=== PATIENT | female | born 1965 | race Caucasian/White ===

== ENCOUNTER → 2019-11-05 12:59 | Outpatient (CLI) | payer OTHER, SELFPAY ==
--- NOTE | 2019-11-05 | DI.MRI.S_ITS ---
PROCEDURE: MR HAND LT WO CON INDICATIONS: Ganglion cyst with neuropathic symptoms TECHNIQUE: Noncontrast coronal T1 spin echo and T2 fast spin echo with fat saturation, axial proton density fast spin echo and T2 fast spin echo with fat saturation, sagittal T1 spin echo and STIR through the hand and fingers. COMPARISON: None. FINDINGS: Image quality: Excellent. Bones: The bones are normally aligned, without marrow contusions or fractures. There is a small intraosseous cystic lesion within the proximal lunate measuring up to 0.4 cm likely representing a ganglion cyst. Interphalangeal joints: The accessory and proper collateral ligaments appear intact. The volar plate demonstrates normal morphology. The extensor central slips appear intact on sagittal images. Metacarpophalangeal joints: The accessory and proper collateral ligaments appear intact, as well as the volar plate and adjacent deep transverse metacarpal ligaments. The sagittal bands of the extensor hyde appear intact. Extensor apparatus: The central slips insert normally on the middle phalangeal base. The conjoint and terminal tendons insert normally on the distal phalangeal bases. More proximal portions of the extensor tendons also appear normal. Flexor apparatus: The flexor digitorum superficialis and profundus tendons appear intact. All annular and cruciform pulleys appear intact, without adjacent soft tissue edema. Soft tissues: Dorsal to the carpus, there is an ill-defined T2 hyperintense cystic lesion overlying the proximal aspect of the capitate. This measures approximately 1.8 cm in longitudinal dimension by 1.4 cm in transverse dimension by 0.4 cm in thickness. Findings likely represent a ganglion cyst. There is minimal mass effect on adjacent small vascular structures. Visualized muscles demonstrate normal bulk and internal signal. No intramuscular masses identified. Within the volar soft tissues of the hand and fingers, there are numerous small T2 hyperintense cystic foci on the order of approximately 0.2-0.3 cm. IMPRESSION: 1. Small dorsal ganglion cyst along the carpus at the level of the capitate. 2. Numerous small T2 hyperintense foci within the volar soft tissues of the hand and fingers suggestive of small soft tissue cyst measuring 2-3 mm. Findings are of indeterminate clinical significance and correlation is recommended with clinical exam and history. Dictated by: Higinio London M.D. on 11/05/2019 at 16:39 Approved by: Higinio London M.D. on 11/05/2019 at 16:48
== END ==
PROVIDERS: Family Provider Family Medicine; PCP Family Medicine; Referring Provider Family Medicine; Visit Provider Family Medicine
DX: M67.442 Ganglion, left hand (principal)
CPT/HCPCS: 73218

== ENCOUNTER 2022-11-26 20:44 | Emergency (ER) | payer OTHER, SELFPAY ==
[2022-11-26 21:03] VITALS: BP 169/109; PULSE 72; RESP 23; TEMP 36.6; O2SAT 98; BMI 23.6
[2022-11-26] MEDS: ONDANSETRON 4 MG ODT SL (21:10)
[2022-11-26 21:50] VITALS: PULSE 82; O2SAT 97
[2022-11-26 21:51] VITALS: BP 137/63; PULSE 83; O2SAT 98
--- NOTE | 2022-11-26 22:10 | ED.HA ---
HPI - Headache General Chief Complaint: Headache Stated Complaint: HEADACHE/VOMITING Time Seen by Provider: 11/26/22 21:54 Source: patient Mode of arrival: Ambulatory Limitations: no limitations History of Present Illness HPI Narrative: Patient is a 57-year-old female. She does have history of migraines. She states that earlier today she had a partial mastectomy secondary to history of ductal carcinoma in Situ that a prior surgery did not have clean margins. States that she was told that the surgery went well. When she got home she took some pain medication. She is had this pain medication in the past without any issues. She thinks that after she took the pain medication she started to develop a headache that she feels his somewhat different than her prior history of migraines. Related Data Home Medications Medication Instructions Recorded Confirmed ginkgo biloba leaf extract 60 mg 60 mg PO ##0 12/06/16 tablet levothyroxine 112 mcg tablet 0.1 mg PO QDAY ##0 12/06/16 quetiapine 100 mg tablet (Seroquel) 100 mg PO HS ##0 12/06/16 Allergies Allergy/AdvReac Type Severity Reaction Status Date / Time codeine [CODEINE] Allergy Unknown Verified 11/26/22 21:10 erythromycin base Allergy Verified 11/26/22 21:10 Sulfa (Sulfonamide Allergy Verified 11/26/22 21:10 Antibiotics) Review of Systems Constitutional Constitutional: Reports system reviewed and no additional complaints, except as documented ENT Ears, Nose, Mouth, and Throat: Reports system reviewed and no additional complaints, except as documented Respiratory Respiratory: Reports system reviewed and no additional complaints, except as documented Integumentary/Breasts Skin/Breast: Reports system reviewed and no additional complaints, except as documented Neurologic Neurologic: Reports system reviewed and no additional complaints, except as documented Hematologic/Lymphatic On Anticoagulants: No Exam Initial Vital Signs Initial Vital Signs: Vital Signs Temperature 97.9 F 11/26/22 21:03 Pulse Rate 72 11/26/22 21:03 Respiratory Rate 23 11/26/22 21:03 Blood Pressure 169/109 H 11/26/22 21:03 Pulse Oximetry 98 11/26/22 21:03 Oxygen Delivery Method Room Air 11/26/22 21:03 Const General: cooperative, comfortable and No ill appearing HENMT Head: normal to inspection Resp Effort & Inspection: normal respiratory effort Cardio Rate: regular rate Neuro General: patient alert, patient awake, patient oriented x3 and moves all extremities Speech: speech normal Gait: normal gait Extrem General: normal to inspection Course Orders Ordered: Discontinued Medications Diphenhydramine HCl (Diphenhydramine 50 Mg/Ml Vial) 25 mg IV NOW ONE Stop: 11/26/22 21:56 Last Admin: 11/26/22 22:20 Dose: 25 mg Documented By: CANELO Sodium Chloride (Normal Saline 0.9%) 1,000 mls @ 1,000 mls/hr IV BOLUS ONE Stop: 11/26/22 22:54 Last Infusion: 11/26/22 23:47 Dose: 0 mls/hr Documented By: Admin: 11/26/22 22:20 Dose: 1,000 mls/hr Documented By: CANELO Metoclopramide HCl (Metoclopramide 10 Mg/2 Ml Inj) 10 mg IV NOW ONE Stop: 11/26/22 21:56 Last Admin: 11/26/22 22:20 Dose: 10 mg Documented By: CANELO Ondansetron HCl (Ondansetron 4 Mg Odt) 4 mg SL NOW ONE Stop: 11/26/22 21:09 Last Admin: 11/26/22 21:10 Dose: 4 mg Documented By: HNG Vital Signs Vital signs: Vital Signs - 8 hr 11/26/22 23:49 11/26/22 23:50 11/26/22 23:50 Pulse Rate 76 60 Blood Pressure 152/70 H Pulse Oximetry 97 98 MDM - Headache MDM Narrative Medical decision making narrative: Patient does report improvement of symptoms after the above-stated therapies. Low suspicion for intracranial hemorrhage/meningitis. No indication for radiologic studies. Will discharge patient home. She is agreement with discharge home as she is feeling better. She was given return precautions. She expressed understanding and agreement. Discharge Plan Departure Patient Disposition: Home Clinical Impression: Headache Instructions: DI for Headache Activity Restrictions/Additional Instructions: I do recommend that you follow all of the postoperative instructions given to you by the surgeon. Continue to take all of your medications as directed. Return to the emergency department for new symptoms. Prescriptions: No Action quetiapine [Seroquel] 100 MG tablet 100 mg PO HS Qty: 0 levothyroxine 112 MCG tablet 0.1 mg PO QDAY Qty: 0 ginkgo biloba leaf extract 60 MG tablet 60 mg PO Qty: 0 Referrals: Kay Elizabeth MD [Primary Care Provider] - Stand Alone Forms: Patient Portal/API
[2022-11-26] MEDS: METOCLOPRAMIDE 10 MG/2 ML INJ IV (22:20)
[2022-11-26] MEDS: SODIUM CHLORIDE 0.9% 1,000 ML 1000 ML IV (22:20)
[2022-11-26] MEDS: diphenhydrAMINE 50 MG/ML VIAL 25 MG IV (22:20)
[2022-11-26 23:49] VITALS: PULSE 76; O2SAT 97
[2022-11-26 23:50] VITALS: BP 152/70; PULSE 60; O2SAT 98
== END 2022-11-26 23:53 | disposition home or self-care (01) ==
PROVIDERS: Emergency Provider Emergency Medicine; Family Provider Family Medicine; PCP Family Medicine
DX: R51.9 Headache, unspecified (principal)
CPT/HCPCS: 96361; 96374; 96375; 99284; J1200; J2765

== ENCOUNTER 2023-05-02 15:12 | Emergency (ER) | payer OTHER, SELFPAY ==
[2023-05-02 15:14] VITALS: BP 156/114; PULSE 73; RESP 18; TEMP 36.1; O2SAT 97; BMI 23.1
--- NOTE | 2023-05-02 15:18 | DI.RAD.S_ITS ---
PROCEDURE: XR WRIST LT MIN 3V INDICATIONS: injury/pain TECHNIQUE: 4 views of the wrist were acquired. COMPARISON: [facility], , WRIST MINIMUM 3 VIEWS RIGHT, 12/06/2016, 14:28. FINDINGS: Bones: There is a dorsally angulated impacted and comminuted distal radial fracture. Small areas of lucency do appear to extend to the articular surface. Scaphoid view: Scaphoid is intact. Soft tissues: No suspicious soft tissue calcifications. IMPRESSION: Angulated comminuted distal radial fracture suspicious for intra-articular extension. Dictated by: Radha Myles M.D. on 05/02/2023 at 16:04 Approved by: Radha Myles M.D. on 05/02/2023 at 16:04
--- NOTE | 2023-05-02 16:33 | ED_ITS ---
HPI - General Adult General Chief complaint: Extremity Injury, Upper Stated complaint: Wrist inj Time Seen by Provider: 05/02/23 16:12 Source: patient Mode of arrival: Ambulatory History of Present Illness HPI narrative: 57-year-old female who is here for evaluation of a left wrist injury. Patient states that she was walking backwards where she tripped over a beam that was on the ground landed on her left wrist. Did not hit her head. Has some discomfort of the left elbow but full range motion of the elbow. Has difficulty moving the wrist. She thinks that it maybe dislocated. Related Data Home Medications Medication Instructions Recorded Confirmed ginkgo biloba leaf extract 60 mg 60 mg PO ##0 12/06/16 tablet levothyroxine 112 mcg tablet 0.1 mg PO QDAY ##0 12/06/16 quetiapine 100 mg tablet (Seroquel) 100 mg PO HS ##0 12/06/16 Allergies Allergy/AdvReac Type Severity Reaction Status Date / Time codeine [CODEINE] Allergy Unknown Verified 11/26/22 21:10 erythromycin base Allergy Verified 11/26/22 21:10 Sulfa (Sulfonamide Allergy Verified 11/26/22 21:10 Antibiotics) Review of Systems Constitutional Constitutional: Reports system reviewed and no additional complaints, except as documented Musculoskeletal Musculoskeletal: Reports system reviewed and no additional complaints, except as documented Integumentary/Breasts Skin/Breast: Reports system reviewed and no additional complaints, except as documented Neurologic Neurologic: Reports system reviewed and no additional complaints, except as documented Patient History Social History Smoking Status: Never smoker Smoking Status: Never smoker alcohol intake frequency: 0-2 drinks per day Substance Use Type: does not use Exam Initial Vital Signs Initial Vital Signs: Vital Signs Temperature 97 F L 05/02/23 15:14 Pulse Rate 73 05/02/23 15:14 Respiratory Rate 18 05/02/23 15:14 Blood Pressure 156/114 H 05/02/23 15:14 Pulse Oximetry 97 05/02/23 15:14 Oxygen Delivery Method Room Air 05/02/23 15:14 Cardio Pulses: radial pulses present on the left Skin General: no rashes or lesions noted Neuro General: patient alert, patient awake and moves all extremities Extrem General: capillary refill normal Other: Obvious deformity to left wrist. Discomfort with flexion and extension. Can not supinate. Left elbow unremarkable. Left shoulder unremarkable. Procedures Orthopedic Splinting/Casting Injury #1: Side: left Upper Extremity Injury Location: wrist Upper Extremity Immobilizer: thumb spica Post splinting neuro exam: intact Post splinting vascular exam: intact Placed by: Provider Course Orders Ordered: ED Orders 05/02/23 15:18 XR wrist LT min 3V Stat Vital Signs Vital signs: Vital Signs - 8 hr 05/02/23 15:14 Temperature 97 F L Pulse Rate 73 Respiratory Rate 18 Blood Pressure 156/114 H Pulse Oximetry 97 Oxygen Delivery Method Room Air Medical Decision Making Imaging Data Extremity x-ray #1: Radiologist's Impression: PROCEDURE:? XR WRIST LT MIN 3V ? INDICATIONS: injury/pain ? TECHNIQUE:? 4 views of the wrist were acquired.? ? COMPARISON:? [facility], , WRIST MINIMUM 3 VIEWS RIGHT, 12/06/2016, 14:28. ? FINDINGS:? ? Bones:? There is a dorsally angulated impacted and comminuted distal radial fracture.? Small areas of lucency do appear to extend to the articular surface. ? Scaphoid view:? Scaphoid is intact. ? Soft tissues:? No suspicious soft tissue calcifications.? ? IMPRESSION:? Angulated comminuted distal radial fracture suspicious for intra- articular extension. MDM Narrative Medical decision making narrative: Patient is neurovascularly intact. She was placed in a thumb spica splint. She was given care instructions and return precautions. She expressed understanding and agreement with the plan. Discharge Plan Departure Patient Disposition: Home Clinical Impression: Left wrist fracture Instructions: DI for Wrist Fracture, How to Take Care of Your Splint Activity Restrictions/Additional Instructions: The splint that was placed today does need to stay on it stay clean and stay dry. Tomorrow contact the orthopedic doctors at the number provided below for a follow-up. Return to the emergency department for new or worsening symptoms. Prescriptions: No Action quetiapine [Seroquel] 100 MG tablet 100 mg PO HS Qty: 0 levothyroxine 112 MCG tablet 0.1 mg PO QDAY Qty: 0 ginkgo biloba leaf extract 60 MG tablet 60 mg PO Qty: 0 Referrals: Kay Elizabeth MD [Primary Care Provider] - Xiao Barber MD [Physician] - Stand Alone Forms: Patient Portal/API
[2023-05-02 17:31] VITALS: BP 169/90; PULSE 78; O2SAT 100
== END 2023-05-02 17:35 | disposition home or self-care (01) ==
PROVIDERS: Emergency Provider Emergency Medicine; Family Provider Family Medicine; PCP Family Medicine
DX: S52.502A Unspecified fracture of the lower end of left radius, initial encounter for closed fracture (principal); W01.0XXA Fall on same level from slipping, tripping and stumbling without subsequent striking against object, initial encounter
CPT/HCPCS: 29125; 73110; 99283

== ENCOUNTER → 2023-05-08 13:28 | Outpatient (CLI) | payer OTHER, SELFPAY ==
--- NOTE | 2023-05-08 13:32 | DI.CT.S_ITS ---
PROCEDURE: CT UE LT WO CON INDICATIONS: Fracture of unspecified carpal bone, left wrist, i TECHNIQUE: Noncontrast 1 mm axial sections acquired through the carpal bones, with coronal and sagittal reformats. COMPARISON: [facility], CR, XR WRIST LT MIN 3V, 05/02/2023, 15:23. FINDINGS: Image quality: Excellent. Bones: Comminuted impacted fracture of the distal radius is again seen. No extension to the distal radial articular surface is seen. There is mild dorsal angulation of the dominant distal fracture fragment with resulting dorsal tilting of the distal radial articular surface. A tiny minimally displaced fracture is seen at the dorsal aspect of the lunate. No ulnar fracture is seen. Severe joint space narrowing is seen at the triscaphe joint and there is moderate 1st carpometacarpal osteoarthrosis. Soft tissues: Soft tissue edema is seen surrounding the wrist and there is a small radiocarpal effusion. The articular cartilages, ligaments, and tendons are not well evaluated with standard CT. The musculature surrounding the wrist is normal in bulk. IMPRESSION: 1. Comminuted transverse fracture of the distal radial metaphysis with mild impaction and dorsal angulation at the distal articular surface component. No intra-articular extension of the fracture is seen. 2. Tiny minimally displaced fracture of the dorsal tip of the lunate. Approved by: Jose Patrick M.D. on 05/08/2023 at 21:43
== END ==
PROVIDERS: Family Provider Family Medicine; PCP Family Medicine; Referring Provider Orthopaedic Surgery; Visit Provider Orthopaedic Surgery
DX: S52.592A Other fractures of lower end of left radius, initial encounter for closed fracture (principal); M18.12 Unilateral primary osteoarthritis of first carpometacarpal joint, left hand; X58.XXXA Exposure to other specified factors, initial encounter
CPT/HCPCS: 73200

== ENCOUNTER 2023-05-10 13:40 | Day surgery (SDC) | payer OTHER, SELFPAY ==
[2023-05-08 09:34] VITALS: BMI 23.1
[2023-05-10] VITALS (10 sets, daily range): BP systolic 138–175; BP diastolic 86–109; PULSE 63–97; RESP 14–16; TEMP 36.1–36.8; O2SAT 95–98; BMI 23.1
[2023-05-10] MEDS: LACTATED RINGERS 1,000 ML 42 ML IV ×2 (14:11→18:00)
[2023-05-10] MEDS: SCOPOLAMINE 1 PATCH TOP (14:48)
--- NOTE | 2023-05-10 15:50 | PM.PREOP ---
Pre-operative Note Interval Note History & Physical reviewed/Exam performed by Physician: Yes Changes to H&P: No
[2023-05-10] MEDS: CEFAZOLIN 2 GM/100 ML PREMIX 100 ML IV ×2 (16:01→17:35)
[2023-05-10] MEDS: EPINEPHrine 1 MG/ML 0.3 MG IM (16:40)
--- NOTE | 2023-05-10 16:51 | SUR.OPER ---
Supine on padded OR bed, head on pillow, arms secured on padded arm boards at <90 degrees abduction, legs uncrossed, safety belt at thigh, blanket over lower legs. Fracture hand table on left side bilateral scd on a functioning. All stephania prominences protected.
[2023-05-10] MEDS: BUPIVACAINE 0.25% (PF) VIAL 30 ML INJ (17:33)
[2023-05-10] MEDS: HYDROCODONE/ACET 5/325 TABLET 1 TAB PO ×2 (17:52→18:26)
[2023-05-10] MEDS: hydrOXYzine pamoate 25 MG CAPSULE PO (17:52)
[2023-05-10] MEDS: fentaNYL 100 MCG/2 ML INJ IV ×2 (17:58→18:07)
[2023-05-10] MEDS: KETOROLAC 30 MG/ML VIAL 15 MG IV (18:03)
[2023-05-10] MEDS: HYDROMORPHONE 1 MG INJ IV ×2 (18:06→18:20)
--- NOTE | 2023-05-10 18:24 | PM.OP.1 ---
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 She was seen in clinic and operative versus nonoperative treatment was discussed. She elected to proceed with surgical fixation. She did have a history of lipoma excision in this extremity. She was met in the preoperative holding area on the day of surgery. Risks and benefits were discussed again and informed consent was obtained. She was brought back to the operating room and LMA anesthesia was induced. She was prepped and draped in the usual sterile fashion. A time-out was performed verifying the correct patient operative site and laterality. A tourniquet was inflated. The FCR approach was utilized. The pronator quadratus was retracted off of the bone and the fracture site was exposed. A K-wire was loaded into the radial styloid and a preliminary reduction was obtained. Fluoroscopic verification of the reduction quality was utilized. An Acumed volar plate was positioned. After initial placement, it was determined that the plate was too proximal and so it was move more distal. PA views were obtained demonstrating appropriate positioning and lateral views were obtained as well. The plate was clamped to the dorsal bone. Locking screws were placed distally including radial styloid screws which were placed in a variable angle fashion. Shaft screws were also placed, 3.5 mm. Final fluoro was obtained demonstrating appropriate volar tilt, no screws extending into the DRUJ or wrist joint, and no screws extending excessively dorsally. Infiltration of local anesthetic was utilized for postoperative pain control and the wound was closed using nylon sutures. Post-operative Plan for aftercare: Discharged home today Activities of daily living only with left upper extremity. 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 Should maintain her splint. Will need to perform her vocational duties with just her right upper extremity. Follow up with me in 2 weeks for a wound check with left wrist x-rays on arrival
[2023-05-10] MEDS: METOCLOPRAMIDE 10 MG/2 ML INJ 5 MG IV (19:15)
== END 2023-05-10 19:26 | disposition home or self-care (01) ==
PROVIDERS: Family Provider Family Medicine; PCP Family Medicine; Referring Provider Orthopaedic Surgery Adult Reconstructive Orthopaedic Surgery; Visit Provider Orthopaedic Surgery Adult Reconstructive Orthopaedic Surgery
PROC: (CPT 25608; principal; 2023-05-10 15:30)
DX: S52.502A Unspecified fracture of the lower end of left radius, initial encounter for closed fracture (principal); M72.0 Palmar fascial fibromatosis [Dupuytren]; W18.01XA Striking against sports equipment with subsequent fall, initial encounter; Y92.211 Elementary school as the place of occurrence of the external cause
CPT/HCPCS: 25608; J0171; J0690; J1100; J1170; J1885; J2405; J2704; J2765; J3010